=== PATIENT | female | born 1950 | race Caucasian/White ===

== ENCOUNTER 2018-02-25 18:31 | Inpatient (IN) | payer MEDICARE, MEDICAID ==
[~2018-02-25] VITALS: Ht 165.1 cm; Wt 196.4 kg
[2018-02-25 18:40] VITALS: BP 136/49
[2018-02-25] MEDS ORDERED: CLOTRIMAZOLE 1%15 G1 TOP (19:05)
[2018-02-25] MEDS ORDERED: DIFLUCAN150 MG PO (19:05)
[2018-02-25] MEDS ORDERED: NEXIUM40 MG PO (19:06)
[2018-02-25] MEDS ORDERED: KLOR-CON 1010 MEQ PO (19:06)
[2018-02-25] MEDS ORDERED: MUPIROCIN15 GM TOP (19:07)
[2018-02-25] MEDS ORDERED: ASPIRIN81 M2 PO (19:08)
[2018-02-25] MEDS ORDERED: ALBUTEROL2.5 MG/31 INH (19:08)
[2018-02-25] MEDS ORDERED: IPRATROPIU0.2 MG/1 M INH (19:08)
[2018-02-25 19:09] LABS: HEMATOCRIT 26.1 % (37.0-47.0); HEMOGLOBIN 7.7 gm/dL (12.0-15.0); MCH 19.8 pg (26.0-34.0); MCHC 29.7 g/dL (28.0-37.0); MCV 66.7 fL (80.0-100.0); MPV 6.6 fl. (7.2-11.1); NUCLEATED RBCS 0 /100WBC; PLATELET COUNT* 306 thou/uL (150-400); WBC 12.4 thou/uL (4.0-11.0)
[2018-02-25] MEDS ORDERED: SYNTHROID75 MCG PO (19:09)
[2018-02-25 19:16] LABS: ANION GAP 3 mmol/L (7-16); BUN 17 mg/dL (7-18); CALCIUM 8.8 mg/dL (8.5-10.1); CHLORIDE 98 mmol/L (98-107); CO2 37 mmol/L (21-32); CREATININE 0.9 mg/dL (0.6-1.3); GLUCOSE 104 mg/dL (70-99); POTASSIUM 4.3 mmol/L (3.5-5.1); SODIUM 138 mmol/L (136-145)
[2018-02-25 19:20] LABS: APTT 29.9 Seconds (25.0-31.3); INR 1.1; PROTIME 10.7 Seconds (9.20-11.50)
[2018-02-25 19:26] LABS: ABSOLUTE LYMPHOCYTES 0.9 thou/uL (0.8-5.3); ABSOLUTE MONOCYTES 0.6 thou/uL (0.0-1.2); ABSOLUTE NEUTROPHILS 10.9 thou/uL (1.6-8.1); HYPOCHROMASIA 2+; MICROCYTES 2+; PLATELET ESTIMATE ADEQUATE
[2018-02-25 19:27] LABS: ALBUMIN 2.9 g/dL (3.4-5.0); ALKALINE PHOSPHATASE 82 U/L (46-116); ANISOCYTOSIS 1+; NT-PRO BRAIN NAT PEPTIDE 221 pg/mL (<300); SGOT 14 U/L (15-37); SGPT 13 U/L (30-65); TOTAL BILIRUBIN 0.4 mg/dL (<0.1-1.0); TOTAL PROTEIN 8.1 g/dL (6.4-8.2); TROPONIN-I LEVEL <0.06 ng/mL (<0.06)
[2018-02-25 20:33] LABS: URINE BILIRUBIN NEGATIVE (Negative); URINE BLOOD 1+ (Negative); URINE CLARITY CLEAR; URINE COLOR YELLOW; URINE GLUCOSE-RANDOM NEGATIVE (Negative); URINE KETONES NEGATIVE (Negative); URINE LEUKOCYTES-REFLEX NEGATIVE (Negative); URINE NITRITE-REFLEX NEGATIVE (Negative); URINE PROTEIN NEGATIVE (Negative); URINE UROBILINOGEN 0.2 E.U./dl (0.2-1.0)
[2018-02-25 20:48] LABS: SQUAMOUS 0-3 Few /LPF (0-3)
[2018-02-25 20:49] LABS: BACTERIA-REFLEX None Seen /HPF (None Seen); CASTS None Seen /LPF (None Seen); CRYSTALS None Seen /LPF (None Seen); URINE RBC 0-2 Rare /HPF (0-2); URINE WBC-REFLEX None Seen /HPF (0-5)
[2018-02-25 21:55] VITALS: BP 109/32
[2018-02-25 22:14] VITALS: BP 138/54
[2018-02-26 00:05] VITALS: BP 127/40
[2018-02-26 04:00] VITALS: BP 118/42
[2018-02-26] MEDS ORDERED: TYLENOL EXTRA500 MG PO (05:23)
[2018-02-26] MEDS ORDERED: LASIX 40 MG TAB40 M2 PO (05:24)
[2018-02-26] MEDS ORDERED: FLOVENT HFA 4444 MCG INH (05:24)
[2018-02-26] MEDS ORDERED: VITAMIN D2000 UNIT PO (05:25)
[2018-02-26] MEDS ORDERED: IRON325 PO (05:26)
[2018-02-26 08:00] VITALS: BP 130/43
--- NOTE | 2018-02-26 09:38 | EKG ---
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
[2018-02-26 11:00] VITALS: BP 133/48
[2018-02-26 16:00] VITALS: BP 139/43
[2018-02-26 19:40] VITALS: BP 138/50
[2018-02-27 00:46] VITALS: BP 135/62
[2018-02-27 08:00] VITALS: BP 121/45
[2018-02-27 08:06] LABS: HEMATOCRIT 26.3 % (37.0-47.0); HEMOGLOBIN 7.8 gm/dL (12.0-15.0); MCH 20.1 pg (26.0-34.0); MCHC 29.6 g/dL (28.0-37.0); MCV 67.9 fL (80.0-100.0); MPV 7.1 fl. (7.2-11.1); RBC 3.88 mil/uL (4.20-5.00); RDW-CV 19.1 % (10.5-14.5); WBC 8.2 thou/uL (4.0-11.0)
[2018-02-27 08:16] LABS: ALBUMIN 2.9 g/dL (3.4-5.0); CALCIUM 8.8 mg/dL (8.5-10.1); CREATININE 1.1 mg/dL (0.6-1.3); POTASSIUM 3.7 mmol/L (3.5-5.1); TOTAL BILIRUBIN 0.3 mg/dL (<0.1-1.0); TOTAL PROTEIN 8.5 g/dL (6.4-8.2)
[2018-02-27 11:00] VITALS: BP 131/53
[2018-02-27 22:00] VITALS: BP 140/66
[2018-02-28 04:19] LABS: HEMATOCRIT 25.1 % (37.0-47.0); HEMOGLOBIN 7.5 gm/dL (12.0-15.0); MCH 20.2 pg (26.0-34.0); MCHC 29.7 g/dL (28.0-37.0); MCV 67.8 fL (80.0-100.0); RBC 3.7 mil/uL (4.20-5.00); RDW-CV 19.5 % (10.5-14.5); WBC 7.9 thou/uL (4.0-11.0)
[2018-02-28 04:46] LABS: ALBUMIN 2.7 g/dL (3.4-5.0); CALCIUM 8.9 mg/dL (8.5-10.1); CREATININE 1.1 mg/dL (0.6-1.3); MAGNESIUM 2.1 mg/dL (1.8-2.4); POTASSIUM 3.5 mmol/L (3.5-5.1); TOTAL BILIRUBIN 0.3 mg/dL (<0.1-1.0); TOTAL PROTEIN 7.9 g/dL (6.4-8.2)
[2018-02-28 08:30] VITALS: BP 145/50
--- NOTE | 2018-02-28 14:41 | 2DMMODE ---
[place] [address] 2 D/M-MODE ECHOCARDIOGRAM Name: LETTY PINTO Room: [address] IN [facility]#: [id number] Admission: 02/25/18 Attend Phys: Ofe Verdugo, Discharge: Date of : 52 Date of Service: 02/28/18 1441 Report #: [id number] THIS REPORT FOR: //name// APPROVED REPORT Study performed: 02/28/2018 10:49:23 EXAM: Comprehensive 2D, Doppler, and color-flow Echocardiogram Patient Location: In-Patient Room #: [facility] Status: routine BSA: 2.80 HR: 65 bpm BP: 140/66 mmHg Rhythm: NSR Other Information Study Quality: Good Indications Congestive Heart Failure Dyspnea 2D Dimensions LVEF(%): 72.37 (>50%) IVSd: 15.20 (7-11mm) LVOT Diam: 19.23 (18-24mm) LVDd: 57.01 mm PWd: 13.47 (7-11mm) Ascending Ao: 33.81 (22-36mm) LVDs: 33.03 (25-40mm) Aortic Root: 32.43 mm Parra's LVEF: 72.37 % Volumes Left Atrial Volume (Systole) LA ESV Index: 36.50 mL/m2 Aortic Valve AoV Peak Christos.: 2.13 m/s AO Peak Gr.: 18.09 mmHg LVOT Max P.86 mmHg AO Mean Gr.: 10.38 mmHg LVOT Mean P.43 mmHg LVOT Max V: 1.65 m/s AO V2 VTI: 46.51 cm LVOT Mean V: 1.07 m/s SALLY (VTI): 2.43 cm2 LVOT V1 VTI: 38.95 [place] [address] 2 D/M-MODE ECHOCARDIOGRAM Name: LETTY PINTO Room: [address] IN .R.#: [id number] Admission: 02/25/18 Attend Phys: Ofe Verdugo, Discharge: Date of : 52 Date of Service: 02/28/18 1441 Report #: [id number] E/A Ratio: 1.14 MV Decel. Time: 240.35 ms MV E Max Christos.: 1.09 m/s MV PHT: 69.70 ms MVA (PHT): 3.16 cm2 TDI E/Lateral E': 8.38 E/Medial E': 15.57 Medial E' Christos.: 0.07 m/s Lateral E' Christos.: 0.13 m/s Pulmonary Valve PV Peak Christos.: 1.45 m/s PV Peak Gr.: 8.46 mmHg Left Ventricle The left ventricle is normal size. There is normal LV segmental wall motion. Moderate concentric left ventricular hypertrophy. Left ventricular systolic function is normal. The left ventricular ejection fraction is within the normal range. LVEF is 55-60%. The left ventricular diastolic function is normal. Right Ventricle The right ventricle is normal size. The right ventricular systolic function is normal. Atria Left atrium is mildly dilated. The right atrium size is normal. Aortic Valve The aortic valve is normal in structure. No aortic regurgitation is present. Mild aortic stenosis. Mitral Valve The mitral valve is normal in structure. Trace mitral regurgitation. No evidence of mitral valve stenosis. Tricuspid Valve The tricuspid valve is normal in structure. Unable to assess PA pressure. Trace tricuspid regurgitation. Pulmonic Valve Pulmonic valve is not well visualized. There is no pulmonic valvular regurgitation[place] [address] 2 D/M-MODE ECHOCARDIOGRAM Name: BRITTANY PINTOJim Durbin Room: [address]#: [id number] Admission: 02/25/18 Attend Phys: Ofe Verdugo, Discharge: Date of : 52 Date of Service: 02/28/18 1441 Report #: [id number] The aortic root is normal in size. IVC is normal in size and collapses with >50% inspiration Pericardium There is no pericardial effusion. <Conclusion> Moderate concentric left ventricular hypertrophy. LVEF is 55-60%. Left atrium is mildly dilated. Mild aortic stenosis. <ELECTRONICALLY SIGNED> By: Jacobo Eagle MD, FACC 02/28/18 144 [id number] 40 Jacobo Eagle MD, FACC /INF
[2018-02-28 16:19] VITALS: BP 130/34
[2018-02-28 20:30] VITALS: BP 167/65
[2018-03-01 04:38] LABS: CALCIUM 8.7 mg/dL (8.5-10.1); POTASSIUM 3.6 mmol/L (3.5-5.1)
[2018-03-01 09:30] VITALS: BP 121/34
[2018-03-01 16:00] VITALS: BP 122/38
[2018-03-01 20:40] VITALS: BP 132/38
[2018-03-02] MEDS ORDERED: LASIX 40 MG TAB40 M2 PO (00:30)
[2018-03-02] MEDS ORDERED: POTASSIUM20 PO (00:30)
[2018-03-02 04:23] LABS: HEMATOCRIT 26.1 % (37.0-47.0); HEMOGLOBIN 7.9 gm/dL (12.0-15.0); MCH 20.4 pg (26.0-34.0); MCHC 30.1 g/dL (28.0-37.0); MCV 67.8 fL (80.0-100.0); MPV 7.2 fl. (7.2-11.1); RBC 3.85 mil/uL (4.20-5.00); RDW-CV 18.8 % (10.5-14.5); WBC 7.2 thou/uL (4.0-11.0)
[2018-03-02 04:39] LABS: ALBUMIN 2.8 g/dL (3.4-5.0); CALCIUM 8.8 mg/dL (8.5-10.1); CREATININE 0.9 mg/dL (0.6-1.3); MAGNESIUM 2.1 mg/dL (1.8-2.4); POTASSIUM 4.1 mmol/L (3.5-5.1); TOTAL BILIRUBIN 0.2 mg/dL (<0.1-1.0); TOTAL PROTEIN 7.5 g/dL (6.4-8.2)
[2018-03-02 09:00] VITALS: BP 114/54
[2018-03-02 16:37] VITALS: BP 121/58
[2018-03-02 21:00] VITALS: BP 150/47
[2018-03-03 08:00] VITALS: BP 127/52
[2018-03-03] MEDS ORDERED: MINOCYCLINE HC100 M2 PO (14:25)
[2018-03-03 16:06] VITALS: BP 133/55
[2018-03-03 20:00] VITALS: BP 137/42
[2018-03-04 07:45] VITALS: BP 130/48
== END 2018-03-04 14:17 | DRG 602 ==
LOC: M.ERS 18:31 → M.2W 20:31 → M.ORTHSURG 20:31 → M.TBA-ER 20:31 → M.2W 22:08 → M.ORTHSURG 02-27 16:14
PROVIDERS: Nurse Practitioner Family; ADMIT Internal Medicine
DX: L03.116 Cellulitis of left lower limb (principal); I50.33 Acute on chronic diastolic (congestive) heart failure; R65.10 Systemic inflammatory response syndrome (SIRS) of non-infectious origin without acute organ dysfunction; E44.1 Mild protein-calorie malnutrition; Z68.45 Body mass index [BMI] 70 or greater, adult; D64.9 Anemia, unspecified; I89.0 Lymphedema, not elsewhere classified; K21.9 Gastro-esophageal reflux disease without esophagitis; I11.0 Hypertensive heart disease with heart failure; E03.9 Hypothyroidism, unspecified; J44.9 Chronic obstructive pulmonary disease, unspecified; E66.01 Morbid (severe) obesity due to excess calories; I87.8 Other specified disorders of veins; Z79.2 Long term (current) use of antibiotics; Z79.82 Long term (current) use of aspirin; Z79.899 Other long term (current) drug therapy; Z88.0 Allergy status to penicillin; Z88.8 Allergy status to other drugs, medicaments and biological substances; Z88.6 Allergy status to analgesic agent; Z88.1 Allergy status to other antibiotic agents; Z91.041 Radiographic dye allergy status; Z98.890 Other specified postprocedural states